=== PATIENT | male | born 1950 | race Native Hawaiian/Other Pacific Islander ===

== ENCOUNTER 2019-08-19 12:19 | Outpatient (CLI) | payer OTHER ==
[2019-08-19 14:55] LABS: POTASSIUM 4.5 mmol/L (3.6-5.2)
[2019-08-19 14:57] LABS: PLATELET COUNT 163 K/uL (142-355)
== END 2019-08-19 20:09 | disposition home or self-care (01) ==
LOC: LAB 12:19
PROVIDERS: Emergency Medicine
DX: E11.621 Type 2 diabetes mellitus with foot ulcer (principal); L97.419 Non-pressure chronic ulcer of right heel and midfoot with unspecified severity; I87.2 Venous insufficiency (chronic) (peripheral)
CPT/HCPCS: 80048; 82040; 83036; 84134; 85027